=== PATIENT | female | born 1955 | race Caucasian/White ===

== ENCOUNTER 2024-07-15 13:54 | Emergency (ER) | payer OTHER, MEDICAID ==
[~2024-07-15] VITALS: Ht 160 cm; Wt 48.0 kg
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
[2024-07-15 15:08] LABS: Chloride 106 mmol/L (98-107); Potassium 4.5 mmol/L (3.5-5.1); Sodium 138 mmol/L (136-145)
[2024-07-15 15:10] LABS: Anion Gap 7 (5-15); Calcium 9.9 mg/dL (8.7-10.4); Carbon Dioxide 25 mmol/L (20-31)
[2024-07-15 15:15] LABS: BUN/Creatinine Ratio 15.9 (10.0-20.0); Blood Urea Nitrogen 13 mg/dL (9-23); Glucose 136 mg/dL (74-106)
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
[2024-07-15 16:01] LABS: Basophils # (auto) 0 10 ^3/uL (0-0.2); Basophils % (auto) 0.4 % (0.0-2.0); Eosinophils # (auto) 0 10 ^3/uL (0-0.8); Eosinophils % (auto) 0.4 % (0.0-7.0); Lymphocytes # (auto) 1.4 10 ^3/uL (0.4-5.4); Lymphocytes % (auto) 10.9 % (10.0-50.0); Mean Corpuscular Hemoglobin 30.8 pg (28.0-32.0); Mean Corpuscular Hgb Conc. 33.3 g/dL (32.0-36.0); Mean Corpuscular Volume 92.4 fL (80.0-100.0); Monocytes # (auto) 0.6 10 ^3/uL (0-1.3); Monocytes % (auto) 4.9 % (0.0-12.0); Neutrophils # (auto) 10.9 10 ^3/uL (1.6-8.6); Neutrophils % (auto) 83.4 % (37.0-80.0); Nucleated Red Blood Cells % 0.1 %; Platelet Count (auto) 248 10^3/uL (140-450); Red Cell Distribution Width 13.6 % (11.8-14.3); White Blood Cell 13.1 10^3/uL (4.4-10.8)
[2024-07-15 16:17] VITALS: BP 143/90; PULSE 109; RESP 18; TEMP 98; O2SAT 97
[2024-07-15 16:40] LABS: Hemoglobin 15.1 g/dL (12.2-16.2); Red Blood Cells 4.91 10^6/uL (4.0-5.20)
[2024-07-15 16:41] LABS: Hematocrit 45.4 % (36.0-46.0)
[2024-07-15 17:33] LABS: Urine Bacteria None Seen /hpf (None Seen)
[2024-07-15 17:44] LABS: Urine Blood Negative /uL (Negative); Urine Clarity Clear (Clear); Urine Color Yellow (Yellow); Urine Mucus FEW (None Seen); Urine Protein, UAD Negative (Negative); Urine Specific Gravity 1.018 (1.001-1.035); Urine Urobilinogen Normal (Negative); Urine WBC 2 /hpf (0 - 5)
== END 2024-07-15 21:37 | disposition left against medical advice (07) ==
LOC: ER 13:54 → EDSEX 13:54 → EDBD 13:54 → ER 21:37
DX: G89.4 Chronic pain syndrome (principal); M79.18 Myalgia, other site; M54.2 Cervicalgia; M19.90 Unspecified osteoarthritis, unspecified site
CPT/HCPCS: 36415; 72040; 72110; 80048; 81001